=== PATIENT | female | born 2000 | race Caucasian/White ===

== ENCOUNTER 2020-01-09 00:26 | Outpatient (CLI) | payer OTHER | END 2020-01-09 00:27 | disposition EMS.NT | LOC: EMS 00:26 | PROVIDERS: ATTEND Surgery | DX: M25.511 Pain in right shoulder (principal) ==

== ENCOUNTER 2020-01-09 01:31 | Emergency (ER) | payer OTHER ==
--- NOTE | 2020-01-09 01:09 | ED Physician Documentation ---
History of Present Illness - Stated complaint Stated Complaint: RIGHT SHOULDER PAIN - History obtained from History obtained from: Patient (Patient is a 19-year-old female who is right- hand dominant presents via EMS with right shoulder pain. Patient reports that she woke up and felt like her right shoulder was dislocated, when EMS arrived she reports when they lifted her up that her right shoulder dislocation spontaneously reduced she has had a history of 1 previous shoulder dislocation. She denies any other complaints.) Review of Systems Constitutional: reports: Reviewed and negative Eyes: reports: Reviewed and negative Ears: reports: Reviewed and negative Nose: reports: Reviewed and negative Throat: reports: Reviewed and negative Cardiac: reports: Reviewed and negative Respiratory: reports: Reviewed and negative GI: reports: Reviewed and negative : reports: Reviewed and negative Skin: reports: Reviewed and negative Musculoskeletal: reports: Joint pain, Other (Right shoulder pain) Neurologic: reports: Reviewed and negative Psychiatric: reports: Reviewed and negative Endocrine: reports: Reviewed and negative Immunocompromised: reports: Reviewed and negative PD PAST MEDICAL HISTORY - Allergies Allergies/Adverse Reactions: Allergies Allergy/AdvReac Type Severity Reaction Status Date / Time No Known Drug Allergies Allergy Verified 01/09/20 01:49 PD ED PE NORMAL - Vitals Vital signs reviewed: Yes - General General: Alert and oriented X 3, No acute distress, Well developed/nourished - HEENT HEENT: PERRL, Moist mucous membranes - Neck Neck: Supple, no meningeal sign - Cardiac Cardiac: RRR, No murmur - Respiratory Respiratory: No respiratory distress, Clear bilaterally - Abdomen Abdomen: Normal bowel sounds, Soft, Non tender, Non distended, No organomegaly - Back Back: No CVA TTP, No spinal TTP - Derm Derm: Normal color, Warm and dry, No rash - Extremities Extremities: Other (On initial examination the right upper extremity is in a sling. There is no gross deformity, radian, median, ulnar motor and sensory exam are intact cotton picking machine operator strength is 5 out of 5 sensations intact to light touch sensation over the lateral deltoid is intact radial pulses are 2+ and symmetric cotton picking machine operator strength is 5 out of 5 there is diffuse tenderness over the right glenohumeral joint there is no obvious dislocation.) - Neuro Neuro: Alert and oriented X 3, patrol community service officer 2-12 intact, No motor deficit, No sensory deficit, Normal speech - Psych Psych: Normal mood, Normal affect Results - Vitals Vitals: Vital Signs - 24 hr 01/09/20 01:40 Temperature 36.9 C Heart Rate 97 Respiratory 18 Rate Blood Pressure 128/98 H O2 Saturation 96 Oxygen O2 Source Room air PD MEDICAL DECISION MAKING - ED course Complexity details: re-evaluated patient, considered differential (Right shoulder dislocation with spontaneous reduction), d/w patient Departure - Departure Disposition: 01 Home, Self Care Clinical Impression: Dislocation of right shoulder joint Qualifiers: Encounter type: initial encounter Qualified Code(s): S43.004A - Unspecified dislocation of right shoulder joint, initial encounter Condition: Stable Instructions: ED Immobilizer Shoulder Follow-Up: your, doctor [Other] [facility] [Provider Group] - Tomorrow Comments: keep shoulder in sling. follow up with your pcp and orthopedic surgery this week.
[2020-01-09] MEDS ORDERED: HYDROcod/ACETAM 5/325 MG TABLET PO STA (01:40)
--- NOTE | 2020-01-09 02:50 | XRAY Report ---
Reason: Right shoulder pain Procedure Date: 01/09/2020 Accession Number: [id number] / [id number] Procedure: XR - Shoulder 3 View RT CPT Code: Final Report FULL RESULT: EXAM: RIGHT SHOULDER RADIOGRAPHY EXAM DATE: 01/09/2020 02:00 AM. CLINICAL HISTORY: Right shoulder pain. COMPARISON: None. TECHNIQUE: 3 views. FINDINGS: Bones: Normal. No fracture or bone lesion. Joints: The glenohumeral and acromioclavicular joints are normal. Soft tissues: The visualized hemithorax is unremarkable. No soft tissue swelling. IMPRESSION: Normal shoulder radiography. [facility]
[2020-01-09 02:56] VITALS: BP 103/66
== END 2020-01-09 03:18 | disposition home or self-care (01) ==
LOC: ED 01:31
DX: S43.004A Unspecified dislocation of right shoulder joint, initial encounter (principal); X58.XXXA Exposure to other specified factors, initial encounter
CPT/HCPCS: 73030; 99283; A9270

== ENCOUNTER 2020-10-30 08:00 | Outpatient (CLI) | payer OTHER ==
[2020-10-30 12:29] LABS: BASOPHILS % (AUTO) 0.2 %; EOSINOPHILS # (AUTO) 0.1 10^3/uL (0.0-0.7); EOSINOPHILS % (AUTO) 2.6 %; HCT - HEMATOCRIT 42.8 % (37.0-47.0); HGB - HEMOGLOBIN 13.7 g/dL (12.0-16.0); LYMPHOCYTES # (AUTO) 1.2 10^3/uL (1.5-3.5); LYMPHOCYTES % (AUTO) 21.9 %; MEAN CORPUSCULAR HEMOGLOBIN 29.8 pg (27.0-31.0); MEAN CORPUSCULAR VOLUME 93.2 fL (81.0-99.0); MEAN PLATELET VOLUME 12.2 fL (7.9-10.8); MONOCYTES # (AUTO) 0.5 10^3/uL (0.0-1.0); MONOCYTES % (AUTO) 9.2 %; NEUTROPHILS # (AUTO) 3.5 10^3/uL (1.5-6.6); NEUTROPHILS % (AUTO) 65.9 %; PLT - PLATELET COUNT 234 10^3/uL (130-450); RED BLOOD COUNT 4.59 10^6/uL (4.20-5.40); RED CELL DISTRIBUTION WIDTH 13.1 % (12.0-15.0); WHITE BLOOD COUNT 5.3 x10^3/uL (4.8-10.8)
[2020-10-30 12:36] LABS: ALBUMIN 3.9 g/dL (3.2-5.5); ALBUMIN/GLOBULIN RATIO 1.1 (1.0-2.2); BILIRUBIN,TOTAL 0.4 mg/dL (0.2-1.0); CALCIUM 8.9 mg/dL (8.5-10.3); POTASSIUM 4.2 mmol/L (3.5-5.0); TOTAL PROTEIN 7.6 g/dL (6.7-8.2)
[2020-10-30 12:40] LABS: BILIRUBIN,URINE NEGATIVE (NEGATIVE); GLUCOSE, URINE (UA) NEGATIVE (NEGATIVE); KETONES,URINE (UA) NEGATIVE (NEGATIVE); LEUKOCYTE ESTERASE, URINE NEGATIVE (NEGATIVE); NITRITE,URINE NEGATIVE (NEGATIVE); OCCULT BLOOD,URINE NEGATIVE (NEGATIVE); PROTEIN,URINE NEGATIVE (NEGATIVE); UROBILINOGEN,URINE 0.2 (NORMAL) E.U./dL (NORMAL)
[2020-10-30 12:42] LABS: CLARITY,URINE CLEAR (CLEAR)
[2020-10-30 13:23] LABS: RBC,URINE 0-5 /HPF (0-5); SQUAMOUS EPITHELIAL CELL,UR RARE Squamous (<= Few); WBC,URINE 0-3 /HPF (0-5)
[2020-10-30 13:24] LABS: BACTERIA,URINE Rare /HPF (None Seen); MUCUS,URINE Few Strands
== END 2020-10-30 23:59 | disposition home or self-care (01) ==
LOC: LAB.N 08:00
PROVIDERS: ATTEND Family Medicine
DX: R10.9 Unspecified abdominal pain (principal)
CPT/HCPCS: 36415; 80053; 81001; 81003; 82150; 83690; 85025; 87086

== ENCOUNTER 2021-04-03 16:10 | Emergency (ER) | payer OTHER ==
[2021-04-03 16:18] VITALS: BP 122/74
[2021-04-03] MEDS ORDERED: methocarbamoL 500 MG TABLET PO STA (16:28)
[2021-04-03] MEDS ORDERED: IBUPROFEN 800 MG TABLET PO STA (16:28)
--- NOTE | 2021-04-03 16:31 | ED Physician Documentation ---
History of Present Illness - Stated complaint Stated Complaint: NECK PX - Chief complaint Chief Complaint: Trauma Hd/Nk - History obtained from History obtained from: Patient - History of Present Illness Timing: Yesterday Pain level max: 7 Pain level now: 5 - Additonal information Additional information: Patient is a 20-year-old female who presents to the emergency department with right-sided neck pain that started after working out at the gym yesterday. No numbness or tingling. Worse with movement, better with rest. She states that she took Motrin this morning without relief. Denies any possibility of . Is not breast-feeding. No fall. No other trauma. Review of Systems Constitutional: denies: Fever, Chills GI: denies: Vomiting, Diarrhea : denies: Now EGA Skin: denies: Rash Musculoskeletal: denies: Back pain Neurologic: denies: Focal weakness, Numbness, Headache, Head injury, LOC PD PAST MEDICAL HISTORY - Past Medical History Past Medical History: No - Past Surgical History Past Surgical History: No - Present Medications Home Medications: Ambulatory Orders Medication Instructions Recorded Confirmed Ibuprofen [Motrin] 800 mg PO Q8H PRN #30 tablet 04/03/21 Norelgestromin/Ethin.estradiol 1 patch TOP ONCE 04/03/21 04/03/21 [Zafemy 150-35 Mcg/Day Patch] methocarbamoL [Robaxin] 500 mg PO Q6H PRN #20 tablet 04/03/21 - Allergies Allergies/Adverse Reactions: Allergies Allergy/AdvReac Type Severity Reaction Status Date / Time No Known Drug Allergies Allergy Verified 04/03/21 16:14 - Social History Does the pt smoke?: No Smoking Status: Never smoker Does the pt drink ETOH?: Yes Does the pt have substance abuse?: Yes Substance Use and Type: Marijuana - Immunizations Immunizations are current?: Yes PD ED PE NORMAL - Vitals Vital signs reviewed: Yes - General General: Alert and oriented X 3, No acute distress - HEENT HEENT: PERRL, Moist mucous membranes, Pharynx benign - Neck Neck: Supple, no meningeal sign, No bony TTP, Other (No midline tenderness to palpation. No step-off or deformity. Mild paraspinal spasm right paracervical. Full range of motion to the left, about 50% range of motion of the right) - Cardiac Cardiac: RRR - Respiratory Respiratory: No respiratory distress, Clear bilaterally - Abdomen Abdomen: Soft, Non tender, Non distended - Back Back: No spinal TTP - Derm Derm: Warm and dry - Neuro Neuro: Alert and oriented X 3, chin strap maker 2-12 intact, No motor deficit, No sensory deficit, Normal speech Eye Opening: Spontaneous Motor: Obeys Commands Verbal: Oriented GCS Score: 15 - Psych Psych: Normal mood, Normal affect Results - Vitals Vitals: Vital Signs - 24 hr 04/03/21 16:15 Temperature 37 C Heart Rate 68 Respiratory 16 Rate Blood Pressure 122/74 O2 Saturation 100 Oxygen O2 Source Room air PD MEDICAL DECISION MAKING - ED course Complexity details: considered differential, d/w patient ED course: Patient is a 20-year-old female who presents to the emergency department with what appears to be a right-sided neck strain. No numbness or tingling. No indication for imaging. Will place on muscle relaxants and pain medication for home. Encourage gentle stretching. Patient counseled regarding signs and symptoms for which I believe and urgent re-evaluation would be necessary. Patient with good understanding of and agreement to plan and is comfortable going home at this time This document was made in part using voice recognition software. While efforts are made to proofread this document, sound alike and grammatical errors may occur. Departure - Departure Disposition: 01 Home, Self Care Clinical Impression: Neck strain Qualifiers: Encounter type: initial encounter Qualified Code(s): S16.1XXA - Strain of muscle, fascia and tendon at neck level, initial encounter Condition: Good Instructions: ED Sprain Strain Neck Follow-Up: Your,doctor in 1 week [Other] Prescriptions: Ibuprofen [Motrin] 800 mg PO Q8H PRN #30 tablet PRN Reason: PAIN &/OR FEVER methocarbamoL [Robaxin] 500 mg PO Q6H PRN #20 tablet PRN Reason: muscle spasm Comments: Continue to gently stretch her neck at home. Do not drive or operate heavy machinery while taking the Robaxin. Follow-up with your doctor as needed for further care. This should improve over the next 2 to 3 days.
== END 2021-04-03 16:44 | disposition home or self-care (01) ==
LOC: ED 16:10
DX: S16.1XXA Strain of muscle, fascia and tendon at neck level, initial encounter (principal); X58.XXXA Exposure to other specified factors, initial encounter; Y93.B9 Activity, other involving muscle strengthening exercises
CPT/HCPCS: 99282; 99284; A9270

== ENCOUNTER 2022-06-02 08:00 | Outpatient (CLI) | payer OTHER ==
--- NOTE | 2022-06-02 14:28 | XRAY Report ---
PROCEDURE: Shoulder 3 View BILAT INDICATIONS: BILAT SHOULDER PAIN TECHNIQUE: 3 views of the shoulder were acquired. COMPARISON: X-ray shoulder 01/09/2020 FINDINGS: Bones: No fractures or dislocations. No suspicious bony lesions. Visualized ribs appear intact. Soft tissues: No suspicious soft tissue calcifications. IMPRESSION: Stable interval exam. Overall unremarkable. Reviewed by: Adriana Garcia MD on 06/02/2022 2:27 PM PDT Approved by: Adriana Garcia MD on 06/02/2022 2:27 PM PDT Station ID: [id number]
== END 2022-06-02 23:59 | disposition home or self-care (01) ==
LOC: DI.WOS 08:00
PROVIDERS: ATTEND Orthopaedic Surgery
DX: M25.511 Pain in right shoulder (principal); M25.512 Pain in left shoulder